=== PATIENT | female | born 1990 | race Two or more races ===

== ENCOUNTER 2018-02-02 05:48 | Observation (INO) ==
[2018-02-02] MEDS ORDERED: Bisacodyl 10 MG Supp RECTAL PRN (10:50)
[2018-02-02] MEDS ORDERED: Temazepam 15 MG Capsule PO PRN (10:50)
--- NOTE | 2018-02-02 11:30 | P.HPIM ---
History of Present Illness Service: [facility] Hospitalist. Primary Care Physician: No Primary Care Physician Chief Complaint: SOB History of Present Illness: 27-year-old female with a medical history significant for asthma and anxiety presented to the emergency room with complaint of worsening shortness of breath. Patient reports she has been having problems with coughing and wheezing for the past week. She has been using albuterol nebulizers at home with increasing frequency with no significant relief. She presented to the emergency room and was given duo nebs but continues to have significant wheezing and shortness of breath. She is admitted for further treatment of asthma exacerbation. She quit using tobacco 5 or 6 years ago. She admits to occasional vaping. - Diagnosis (1) Asthma exacerbation (2) Anxiety Review of Systems All other systems reviewed negative except as stated in [facility] - History History Provided By: Patient - Medical History Medical History: Medical History (Last Updated 02/02/18 @ 11:50 by Eunice Marc MD) Anxiety Asthma - Surgical History Surgical History: Surgical History (Last Updated 02/02/18 @ 11:50 by Eunice Marc MD) No history of previous surgery - Family History Family History: Family History (Last Updated 02/02/18 @ 11:50 by Eunice Marc MD) Other Family history non-contributory - Tobacco History Second Hand Smoke Exposure: No Tobacco Use In Past 30 Days: No Smoking Status: Former smoker Tobacco Type: Cigarettes, E-Cigarettes - Alcohol History How Often Do You Have a Drink Containing Alcohol: Monthly or less - Substance Use History Substance History: No History of Abuse Medications and Allergies Active Medications: Active Medications Al Hydroxide/Mg Hydroxide (Milk Of Magnesia Liq) 30 ml PO Q12H PRN PRN Reason: Mild Constipation Albuterol (Duoneb Neb (Judie)) 1 ampul NEB Q4HR NEB JUDIE Albuterol (Albuterol Neb (Prn)) 2.5 mg NEB Q2HR NEB PRN PRN Reason: SHORTNESS OF BREATH/WHEEZING Bisacodyl (Dulcolax Supp) 10 mg RECTAL DAILY PRN PRN Reason: SEVERE CONSITIPATION Lactulose (Lactulose Liq) 30 ml PO DAILY PRN PRN Reason: SEVERE CONSITIPATION Methylprednisolone Sodium Succinate (Solumedrol Inj) 40 mg IV.PUSH Q8HR JUDIE Sennosides (Senokot) 17.2 mg PO Q12H PRN PRN Reason: Moderate Constipation Temazepam (Restoril) 15 mg PO HS PRN PRN Reason: INSOMNIA Allergies Allergy/AdvReac Type Severity Reaction Status Date / Time No Known Allergies Allergy Verified 02/02/18 06:41 Home Medications Medication Instructions Recorded Confirmed Type cortisone 10 mg/kg PO DAILY 02/02/18 02/02/18 History Exam Narrative: GENERAL: This is a well-nourished, well-developed patient, in no apparent distress. Vital signs reviewed CARDIOVASCULAR: Normal rate and regular rhythm without murmurs, gallops, or rubs. RESPIRATORY: Good respiratory efforts. Air movement is fair. There is diffuse inspiratory and expiratory wheezing. Dry cough GASTROINTESTINAL: Abdomen soft, non-tender, non-distended. Normal active bowel sounds MUSCULOSKELETAL: Extremities without cyanosis, or edema. NEURO: Alert & Oriented x4 to person, place, time, situation. Moves all ext x4 PSYCH: Appropriate mood and affect. Caprini VTE Risk Assessment Caprini VTE Risk Assessment: No/Low Risk (score <= 1) Caprini Risk Assessment Model: Point Value = 1 Point Value = 2 Point Value = 3 Point Value = 5 Age 41-60 Minor surgery BMI > 25 kg/m2 Swollen legs Varicose veins or History of unexplained or recurrent spontaneous Oral contraceptives or hormone replacement Sepsis (< 1 month) Serious lung disease, including pneumonia (< 1 month) Abnormal pulmonary function Acute myocardial infarction Congestive heart failure (< 1 month) History of inflammatory bowel disease Medical patient at bed rest Age 61-74 Arthroscopic surgery Major open surgery (> 45 min) Laparoscopic surgery (> 45 min) Malignancy Confined to bed (> 72 hours) Immobilizing plaster cast Central venous access Age >= 75 History of VTE Family history of VTE Factor V Leiden Prothrombin [id number] Lupus anticoagulant Anticardiolipin antibodies Elevated serum homocysteine Heparin-induced thrombocytopenia Other congenital or acquired thrombophilia Stroke (< 1 month) Elective arthroplasty Hip, pelvis, or leg fracture Acute spinal cord injury (< 1 month) Prophylaxis Regimen: Total Risk Factor Score Risk Level Prophylaxis Regimen 0-1 Low Early ambulation 2 Moderate Order ONE of the following: *Sequential Compression Device (SCD) *Heparin 5000 units SQ BID 3-4 Higher Order ONE of the following medications: *Heparin 5000 units SQ TID *Enoxaparin/Lovenox 40 mg SQ daily (WT < 150 kg, CrCl > 30 mL/min) *Enoxaparin/Lovenox 30 mg SQ daily (WT < 150 kg, CrCl > 10-29 mL/min) *Enoxaparin/Lovenox 30 mg SQ BID (WT < 150 kg, CrCl > 30 mL/min) AND/OR *Sequential Compression Device (SCD) 5 or more Highest Order ONE of the following medications: *Heparin 5000 units SQ TID (Preferred with Epidurals) *Enoxaparin/Lovenox 40 mg SQ daily (WT < 150 kg, CrCl > 30 mL/min) *Enoxaparin/Lovenox 30 mg SQ daily (WT < 150 kg, CrCl > 10-29 mL/min) *Enoxaparin/Lovenox 30 mg SQ BID (WT < 150 kg, CrCl > 30 mL/min) AND *Sequential Compression Device (SCD) Assessment and Plan - Assessment (1) Asthma exacerbation Code(s): J45.901 - Unspecified asthma with (acute) exacerbation Status: Acute (2) Anxiety Code(s): F41.9 - Anxiety disorder, unspecified Status: Acute - Plan 27-year-old female admitted for asthma exacerbation: Asthma exacerbation: Failed initial treatment in the emergency department. -Admit for observation. -IV Solu-Medrol and duo nebs. Anticipate she will be able to transition to oral prednisone tomorrow morning on discharge. -Chest x-ray does not show any evidence of pneumonia. Generalized anxiety disorder: Patient reports she used to take Xanax in the plaques but does not want to take any medications for it. -Discussed coping techniques with the patient. Advised outpatient follow-up with PCP. Discussed Condition With: Dr. Brown. H&P: Quality - VTE Deep Vein Thrombosis/Pulmonary Embolism Present on Admission: No
[2018-02-02] MEDS: MethylPREDNISolone Sod Succinate Inj 40 MG/ML Vial IV.PUSH SCH ×2 (14:01→22:41)
[2018-02-02] MEDS ORDERED: Sodium Chloride 0.65% Nasal Spray 45 ML Bottle EACH NARE PRN (18:00)
[2018-02-03] MEDS: MethylPREDNISolone Sod Succinate Inj 40 MG/ML Vial IV.PUSH SCH (05:29)
[2018-02-03 06:35] LABS: Baso # (Auto) 0.3 th/mm3 (0.0-0.2); Eos % (Auto) 0.1 % (0.0-4.0); Hematocrit 45.3 % (35.0-46.0); Hemoglobin 15.4 gm/dL (11.6-15.3); Lymph # (Auto) 1.3 th/mm3 (1.0-4.8); Lymph % (Auto) 3.9 % (9.0-44.0); Mean Corpuscular HGB Conc 33.9 % (32.0-36.0); Mean Corpuscular Hemoglobin 30.3 pg (27.0-34.0); Mean Corpuscular Volume 89.3 fL (80.0-100.0); Mean Platelet Volume 8.6 fL (7.0-11.0); Mono # (Auto) 0.6 th/mm3 (0.0-0.9); Mono % (Auto) 1.8 % (0.0-8.0); Neut % (Auto) 93.2 % (16.0-70.0); Platelet Count 296 th/mm3 (150-450); Red Blood Count 5.08 mil/mm3 (4.00-5.30); Red Cell Distribution Width 12.4 % (11.6-17.2); White Blood Count 33.2 th/mm3 (4.0-11.0)
[2018-02-03 06:40] LABS: Chloride 109 meq/L (98-107); Potassium 4.2 meq/L (3.5-5.1); Sodium 140 meq/L (136-145)
[2018-02-03 06:43] LABS: Calcium 8.8 mg/dL (8.5-10.1); Glucose,Random 127 mg/dL (74-106)
[2018-02-03 06:44] LABS: Anion Gap 8 meq/L (5-15); Blood Urea Nitrogen 8 mg/dL (7-18); Carbon Dioxide 23.4 meq/L (21.0-32.0)
[2018-02-03 06:47] LABS: Glomerular Filtration Rate Greater Than 89 mL/min (>89)
[2018-02-03 07:29] LABS: Lymphocytes 7 % (9-44); Monocytes 2 % (0-8)
[2018-02-03 07:30] VITALS: O2SAT 99
[2018-02-03 07:31] LABS: Toxic Granulation 1+
[2018-02-03 07:32] LABS: Platelet Estimate Normal (Normal); Platelet Morphology Normal (Normal)
--- NOTE | 2018-02-03 08:10 | P.PN ---
Subjective Interval history: Follow-up asthma exacerbation anxiety. Patient seen and examined, ambulating in room with no shortness of breath. No presence of wheezing. Has significantly improved overnight. Spoke to patient and spouse at length regarding treatment plan. Will discharge home on steroids and antibiotics. Afebrile. Vital signs stable. Physical Exam Vital signs: Vital Signs 02/02/18 12:00 02/02/18 13:50 02/02/18 15:14 Temperature 97.7 F Pulse Rate 110 H Respiratory Rate 19 Blood Pressure 131/66 Pulse Oximetry 98 97 97 02/02/18 16:00 02/02/18 20:00 02/02/18 20:17 Temperature 97.9 F 98.1 F Pulse Rate 99 H 99 H 99 H Respiratory Rate 18 18 18 Blood Pressure 123/75 129/76 Pulse Oximetry 97 96 98 02/03/18 00:00 02/03/18 03:03 02/03/18 03:07 Temperature 97.8 F Pulse Rate 76 78 Respiratory Rate 18 24 Blood Pressure 126/69 Pulse Oximetry 95 91 L 95 02/03/18 07:25 Temperature Pulse Rate 92 H Respiratory Rate 18 Blood Pressure Pulse Oximetry 99 Intake & Output 02/02/18 02/03/18 02/03/18 18:59 06:59 18:59 Intake Total 720 / 720 480 / 480 Balance 720 / 720 480 / 480 Weight 71.1 kg 65 kg Intake: Oral 720 / 720 480 / 480 Other: # Voids 4 1 # Bowel Movements 0 Weight On Admission 2.268 kg Narrative: GENERAL: Well-developed, well-nourished patient in [facility]. SKIN: Warm and dry. No rash. HEAD: Normocephalic. Atraumatic. EYES: Pupils equal and round. No scleral icterus. No injection or drainage. ENT: No nasal bleeding or discharge. Mucous membranes pink and moist. NECK: Supple. Trachea midline. CARDIOVASCULAR: Regular rate and rhythm. S1, S2 noted. No murmur appreciated. RESPIRATORY: No accessory muscle use. Clear to auscultation. Breath sounds equal bilaterally. GASTROINTESTINAL: Abdomen soft, non-tender, nondistended. Normoactive bowel sounds x4. MUSCULOSKELETAL: No obvious deformities. Extremities without clubbing, cyanosis , or edema. NEUROLOGICAL: Awake and alert. No obvious cranial nerve deficits. Motor grossly within normal limits. 5/5 muscle strength in bilateral upper and lower extremities. Normal speech. PSYCHIATRIC: Appropriate mood and affect; insight and judgment normal. Results - Labs CBC & Chem 7: 02/03/18 06:15 18 06:15 Laboratory Results - last 24 hr 02/03/18 02/03/18 06:15 06:15 CBC w Diff Slide review pending WBC 33.2 H D RBC 5.08 Hgb 15.4 H Hct 45.3 MCV 89.3 MCH 30.3 MCHC 33.9 RDW 12.4 Plt Count 296 MPV 8.6 Neut % (Auto) 93.2 H Lymph % (Auto) 3.9 L [place] % (Auto) 1.8 Eos % (Auto) 0.1 Baso % (Auto) 1.0 Neut # (Auto) 31.0 H Lymph # (Auto) 1.3 [place] # (Auto) 0.6 Eos # (Auto) 0.0 Baso # (Auto) 0.3 H WBC Differential Manual diff final Seg Neuts % (Manual) 90 H Band Neuts % (Manual) 1 Lymphocytes % (Manual) 7 L Monocytes % (Manual) 2 Abs Neuts (Manual) 30.2 H Differential Comment . Toxic Granulation 1+ H Platelet Estimate Normal Platelet Morphology Normal Sodium 140 Potassium 4.2 D Chloride 109 H Carbon Dioxide 23.4 Anion Gap 8 BUN 8 Creatinine 0.73 Estimated GFR Greater than 89 Random Glucose 127 H Calcium 8.8 D Assessment and Plan - Assessment (1) Asthma exacerbation Code(s): J45.901 - Unspecified asthma with (acute) exacerbation Status: Acute (2) Anxiety Code(s): F41.9 - Anxiety disorder, unspecified Status: Acute - Plan 27-year-old female admitted for asthma exacerbation: Asthma exacerbation: Failed initial treatment in the emergency department. -Admitted for observation overnight. Was given IV Solu-Medrol and duo nebs. Patient was transitioned to oral prednisone today. Has significantly improved overnight. No further shortness of breath or wheezing. -Chest x-ray does not show any evidence of pneumonia. Generalized anxiety disorder: Patient reports she used to take Xanax in the past but does not want to take any medications for it. -Discussed coping techniques with the patient. Advised outpatient follow-up with PCP. Discharge home. Follow-up PCP. Prescription per discharge orders. Activity as tolerated. Regular diet.
[2018-02-03 10:35] VITALS: BP 118/73; PULSE 98; RESP 16; TEMP 98.4
== END 2018-02-03 10:40 | disposition home or self-care (01) ==
LOC: PH3 05:48 → PHEDDLT 05:48
PROVIDERS: ADMIT Hospitalist; ATTEND Hospitalist